=== PATIENT | male | born 1955 ===

== ENCOUNTER → 2021-12-04 10:29 | Outpatient (BNVA) | payer OTHER, SELFPAY | PROVIDERS: Family Provider Family Medicine; Visit Provider Nurse Practitioner Family | DX: S89.91XA Unspecified injury of right lower leg, initial encounter (principal); X58.XXXA Exposure to other specified factors, initial encounter; Q74.1 Congenital malformation of knee | CPT/HCPCS: 73562 ==

== ENCOUNTER → 2022-01-03 08:19 | Outpatient (BNVA) | payer OTHER, SELFPAY | PROVIDERS: Family Provider Family Medicine; Visit Provider Nurse Practitioner Family | DX: S82.001A Unspecified fracture of right patella, initial encounter for closed fracture (principal); X58.XXXA Exposure to other specified factors, initial encounter | CPT/HCPCS: 73560 ==

== ENCOUNTER 2022-01-03 15:17 | Outpatient (CLI) | payer OTHER, SELFPAY | END 2022-01-03 15:18 | disposition home or self-care (01) | LOC: SPT 15:18 | PROVIDERS: Family Provider Family Medicine; Visit Provider Nurse Practitioner Family | DX: Z46.89 Encounter for fitting and adjustment of other specified devices (principal); S82.009D Unspecified fracture of unspecified patella, subsequent encounter for closed fracture with routine healing; X58.XXXD Exposure to other specified factors, subsequent encounter | CPT/HCPCS: L1812 ==

== ENCOUNTER 2022-01-28 08:34 | Outpatient (CLI) | payer OTHER, SELFPAY ==
--- NOTE | 2022-01-28 08:37 | CT_ITS ---
WS: [id number] MRI RIGHT KNEE without CONTRAST., 3-D imaging. COMPARISON: Radiograph 12/04/2021 and 01/03/2022 Multiplanar, multisequence imaging is performed without contrast. 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 Fracture extends 4.7 cm from th e tibial plateau to the metadiaphysis. Comminuted fracture line with vertical and horizontal componen ts. Depression along the tibial plateau by approximately 2 mm. Maximal widening along the fracture li ne is 3 mm. Fracture extends medially to the base of the tibial spines. No additional acute fractures are identified. Osteophytes along the margins of the joint spaces. Mild joint space narrowing. 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 Fibular head is intact. Small suprapatellar effusion. Mild soft tissue edema surrounding the knee. 3-D images reveal normal a lignment. CT/CT knee RT wo con* [id number] IMPRESSION: 1. 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 Fracture was initially described on 12/04/2021. 2. Comminuted tibial plateau fracture depressed by 2 mm.
== END 2022-01-28 08:35 | disposition home or self-care (01) ==
LOC: RAD 08:35
PROVIDERS: Visit Provider Nurse Practitioner Family
DX: S82.001A Unspecified fracture of right patella, initial encounter for closed fracture (principal); S82.201A Unspecified fracture of shaft of right tibia, initial encounter for closed fracture; X58.XXXA Exposure to other specified factors, initial encounter
CPT/HCPCS: 73700

== ENCOUNTER → 2022-02-19 07:59 | Outpatient (BNVA) | payer OTHER, SELFPAY | PROVIDERS: Visit Provider Nurse Practitioner Family | DX: S82.001A Unspecified fracture of right patella, initial encounter for closed fracture (principal); X58.XXXA Exposure to other specified factors, initial encounter | CPT/HCPCS: 73560 ==